=== PATIENT | male | born 1970 | race African-American/Black ===

== ENCOUNTER 2017-01-18 17:21 | Emergency (ER) | payer SELFPAY | END 2017-01-18 18:10 | disposition home or self-care (01) | LOC: D.ER 17:21 | DX: E11.621 Type 2 diabetes mellitus with foot ulcer (principal); L97.529 Non-pressure chronic ulcer of other part of left foot with unspecified severity; L97.519 Non-pressure chronic ulcer of other part of right foot with unspecified severity; Z79.4 Long term (current) use of insulin ==

== ENCOUNTER 2019-01-24 17:18 | Emergency (ER) | payer OTHER, MEDICAID ==
[~2019-01-24] VITALS: Ht 188 cm; Wt 113.6 kg
[2019-01-24 17:21] VITALS: Ht 188 cm; Wt 113.6 kg
[2019-01-24] MEDS ORDERED: NORVASC10 MG PO (17:24)
[2019-01-24] MEDS ORDERED: TOPROL XL25 MG PO (17:24)
[2019-01-24] MEDS ORDERED: LISINOPRIL-HCT1 EAC4 PO (17:25)
[2019-01-24] MEDS ORDERED: LANTUS INSULIN10 ML SC (17:25)
[2019-01-24] MEDS ORDERED: VICTOZA0.6 MG/0.1 SQ (17:25)
[2019-01-24] MEDS ORDERED: FUROSEMIDE20 MG PO (17:26)
[2019-01-24] MEDS ORDERED: LIPITOR40 MG PO (17:26)
[2019-01-24] MEDS ORDERED: BUPROPION XL300 MG PO (17:27)
[2019-01-24] MEDS ORDERED: VALIUM10 MG PO (17:27)
[2019-01-24] MEDS ORDERED: PHENERGAN25 M1 PO (17:28)
[2019-01-24] MEDS ORDERED: OXYCONTIN15 MG PO (17:28)
[2019-01-24 18:00] LABS: BASOPHILS 0.3 % (0-2); EOSINOPHILS 3.4 % (0-7); HEMATOCRIT 26.4 % (42.0-54.0); HEMOGLOBIN 8.8 g/dL (13.5-17.5); IMMATURE GRANULOCYTES 0.1 % (0-5); LYMPHOCYTES 23.8 % (15-50); MCH 30.9 pg (26.0-34.0); MCHC 33.3 g/dL (31.0-37.0); MCV 92.6 fL (80.0-100.0); MEAN PLATELET VOLUME 9.5 fL (7.4-10.4); MONOCYTES 3.9 % (2-11); NEUTROPHILS 68.5 % (40-80); PLATELET COUNT 226 10x3/uL (130-400); RBC 2.85 10x6/uL (4.20-6.10); RDW 11.8 % (11.5-14.5); WBC 7.7 10x3/uL (4.8-10.8)
[2019-01-24 18:08] LABS: APTT 30.2 SECONDS (22.8-39.4); INR 1.12 (0.85-1.17); PROTIME 13.9 SECONDS (11.6-15.0)
[2019-01-24 18:14] LABS: ALBUMIN 3.3 g/dL (3.4-5.0); ALKALINE PHOSPHATASE 61 U/L (46-116); ALT (SGPT) 21 U/L (10-68); BILIRUBIN - TOTAL 0.22 mg/dL (0.2-1.3); CALC OSMOLALITY 286 mosm/kg (275-300); CALCIUM 8.9 mg/dL (8.5-10.1); CARBON DIOXIDE 22.5 mmol/L (21.0-32.0); CHLORIDE - SERUM 105 mmol/L (98-107); CREATININE - SERUM 1.7 mg/dL (0.6-1.3); GLUCOSE 220 mg/dL (74-106); POTASSIUM - SERUM 4.4 mmol/L (3.5-5.1); PROTEIN - SERUM 7.1 g/dL (6.4-8.2); SODIUM 138 mmol/L (136-145); UREA NITROGEN 25 mg/dL (7-18); eGFR NON AFRICAN AMERICAN 46 mL/min (90-120)
[2019-01-24 18:24] LABS: CKMB 0.7 U/L (0.0-3.6); CREATINE KINASE 206 UL (21-232)
[2019-01-24 18:27] LABS: TROPONIN-I < 0.017 ng/mL (0.000-0.060)
[2019-01-24] MEDS ORDERED: SULFAMETHOXAZOL1 TA3 PO (18:40)
[2019-01-24] MEDS ORDERED: CLEOCIN HCL300 MG PO (18:40)
[2019-01-24 20:40] VITALS: BP 141/86
== END 2019-01-24 20:40 | disposition home or self-care (01) ==
LOC: D.ER 17:18
PROVIDERS: Emergency Medicine
DX: T81.40XA Infection following a procedure, unspecified, initial encounter (principal)